=== PATIENT | female | born 1970 | race Two or more races ===

== ENCOUNTER 2023-07-03 09:29 | Outpatient (CLI) | payer OTHER | END 2023-07-03 10:24 | disposition home or self-care (01) | LOC: MRI 09:29 | PROVIDERS: ATTEND Orthopaedic Surgery | DX: S83.201A Bucket-handle tear of unspecified meniscus, current injury, left knee, initial encounter (principal); M25.561 Pain in right knee; M25.562 Pain in left knee; M25.551 Pain in right hip | CPT/HCPCS: 73721 ==